=== PATIENT | female | born 1975 | race Hispanic/Latino ===

== ENCOUNTER 2017-10-22 09:16 | Emergency (ER) | payer MEDICARE, OTHER ==
[2017-10-22 09:21] VITALS: BMI 21.3
[2017-10-22] MEDS ORDERED: Sodium Chloride 0.9% 1,000 ML IV STA (09:54)
[2017-10-22 10:22] LABS: BASO # 0.1 K/uL (0.0-0.2); BASO % 1.3 % (0.0-2.0); EOS # 0.1 K/uL (0.0-0.7); EOS % 1.8 % (0.0-4.0); HEMOGLOBIN 13.9 g/dL (12.0-16.0); LYMPH # 1.7 K/uL (1.0-4.3); LYMPH % 39.6 % (20.0-40.0); MEAN CELL VOLUME 85.3 fl (81.0-99.0); MEAN CORPUSCULAR HEMOGLOBIN 29.5 pg (27.0-31.0); MEAN CORPUSCULAR HGB CONC 34.6 g/dL (33.0-37.0); MEAN PLATELET VOLUME 8.8 fl (7.2-11.7); MONO # 0.4 K/uL (0.0-0.8); NEUT # 2.1 K/uL (1.8-7.0); NEUT % 48.3 % (50.0-75.0); NRBC % 0.2 % (0.0-0.0); RBC 4.72 Mil/uL (3.80-5.20); RED CELL DISTRIBUTION WIDTH 14.1 % (11.5-14.5); WHITE BLOOD COUNT 4.3 K/uL (4.8-10.8)
[2017-10-22 10:44] LABS: ALB/GLOB RATIO 1.3 (1.0-2.1); ALBUMIN 4.9 g/dL (3.5-5.0); ALT/SGPT 34 U/L (9-52); AST/SGOT 27 U/L (14-36); BLOOD UREA NITROGEN 19 mg/dl (7-17); CALCIUM 9.8 mg/dL (8.4-10.2); GFR AFRICAN-AMERICAN > 60; GFR NON-AFRICAN AMERICAN > 60; LIPASE 52 U/L (23-300)
--- NOTE | 2017-10-22 10:47 | ED PDOC ---
HPI: Abdomen Time Seen by Provider: 10/22/17 09:33 Chief Complaint (Nursing): Abdominal Pain Chief Complaint (Provider): Abdominal Pain History Per: Patient History/Exam Limitations: no limitations Onset/Duration Of Symptoms: Days, Worse Since Current Symptoms Are (Timing): Constant Quality Of Discomfort: "Pain" Associated Symptoms: Vomiting. denies: Fever, Diarrhea, Chest Pain Additional Complaint(s): 42 year old female with a history of UTI presents to the ED complaining of lower abdominal pain radiating to the back onset for months. She reports the pain is worse today and associated with vomiting. She visited GI specialist, Dr. Craft several weeks ago and had abdominal xray done and was advised to increase fiber in her diet. She states due to her history of urinary infection, she was hospitalized for 6 days last year at [facility]. 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 Patient denies diarrhea , constipation, fever, chest pain or cough. PMD: Zana Matamoros Past Medical History Reviewed: Historical Data, Nursing Documentation, Vital Signs Vital Signs: Last Vital Signs Temp 98.3 F 10/22/17 15:16 Pulse 91 H 10/22/17 15:16 Resp 14 10/22/17 15:16 BP 131/86 10/22/17 15:16 Pulse Ox 100 10/22/17 15:16 - Medical History Other PMH: UTI, precancerous lesions on the vagina, questionable palpitation - Surgical History Other surgeries: total abdominal hysterectomy, laser surgery for precancerous lesions on the vagina - Family History Family History: States: Unknown Family Hx - Home Medications Home Medications: Ambulatory Orders Medication Instructions Recorded Ciprofloxacin [Cipro] 500 mg PO BID #14 tab 10/22/17 Ibuprofen [Motrin Tab] 600 mg PO Q6 PRN #15 tab 10/22/17 - Allergies Allergies/Adverse Reactions: Allergies Allergy/AdvReac Type Severity Reaction Status Date / Time codeine Allergy Mild RASH Verified 10/22/17 10:26 Review of Systems ROS Statement: Except As Marked, All Systems Reviewed And Found Negative Constitutional: Negative for: Fever Cardiovascular: Negative for: Chest Pain Respiratory: Negative for: Cough Gastrointestinal: Positive for: Vomiting, Abdominal Pain. Negative for: Diarrhea, Constipation Genitourinary Female: Positive for: Frequency Physical Exam - Reviewed Nursing Documentation Reviewed: Yes Vital Signs Reviewed: Yes - Physical Exam Appears: Positive for: Non-toxic, No Acute Distress Head Exam: Positive for: ATRAUMATIC, NORMAL INSPECTION, NORMOCEPHALIC Skin: Positive for: Normal Color, Warm, Dry Eye Exam: Positive for: EOMI, Normal appearance, PERRL ENT: Positive for: Normal ENT Inspection Neck: Positive for: Normal, Painless ROM, Supple. Negative for: Decreased ROM Cardiovascular/Chest: Positive for: Regular Rate, Rhythm. Negative for: Murmur Respiratory: Positive for: Normal Breath Sounds. Negative for: Decreased Breath Sounds, Accessory Muscle Use, Respiratory Distress Gastrointestinal/Abdominal: Positive for: Soft, Tenderness (lower bilateral ). Negative for: Guarding, Rebound Back: Positive for: L CVA Tenderness, R CVA Tenderness Neurologic/Psych: Positive for: Alert, Oriented (x3). Negative for: Motor/ Sensory Deficits - Laboratory Results Result Diagrams: 10/22/17 10:00 10/22/17 10:00 - ECG O2 Sat by Pulse Oximetry: 98 (RA) Pulse Ox Interpretation: Normal Medical Decision Making Medical Decision Making: Time: 953 Differential Diagnosis includes but is not limited to: blood work and imagining to r/o nephritis and other infections vs colitis Initial Plan: --Abd & Pelvis IV Contrast CT --CMP --Lipase --ED Urine --ED Urine dipstick --CBC w/ Differential --Normal Saline 1000 mls/hr --Toradol 15mg IVP --Zofran Inj IV --Reevaluation Time: 1330 PROCEDURE: CT abdomen pelvis dated 10/22/2017. HISTORY: Back and lower abdominal/pelvic pain. History of UTIs. COMPARISON: None. TECHNIQUE: Contiguous helical/ transaxial sections of the abdomen pelvis performed following injection of approximately 95 cc Omnipaque 300 contrast material. Additional 2D sagittal and coronal reformats generated. Radiation dose: Total exam DLP = 330.02 mGy-cm. This CT exam was performed using one or more of the following dose reduction techniques: Automated exposure control, adjustment of the mA and/or kV according to patient size, and/or use of iterative reconstruction technique. . FINDINGS: LOWER THORAX: Heart size normal. No significant pericardial effusion. The there is tiny hiatal hernia. Lung conklin clear without focal consolidation or effusion. LIVER: Liver exhibits relatively normal size measuring approximately 17.3 cm in CC dimension. Mild diffuse fatty hepatic infiltration. No obvious hepatic mass collection or calcification. No significant ductal dilatation. GALLBLADDER AND BILE DUCTS: Gallbladder physiologically distended. No evidence of intraluminal gallbladder calculi. PANCREAS: Pancreas appears slightly atrophic. No pancreatic masses collections or calcifications seen. SPLEEN: Spleen is borderline enlarged measuring chronic 12 cm in AP dimension. ADRENALS: Slightly prominent nodular appearing left adrenal gland. Right adrenal gland unremarkable. KIDNEYS AND URETERS: Kidneys demonstrate relatively symmetric size. No evidence of nephrolithiasis or hydronephrosis. VASCULATURE: Unremarkable. No aortic aneurysm. BOWEL: Evaluation of the bowel is limited due to the lack of oral contrast material. The stomach is incompletely distended. Slightly prominent fluid-filled loops of small bowel seen predominately located within the pelvis with less distended proximal small bowel. Rule out mild enteritis. No evidence of acute mechanical small bowel obstruction. Stool and air seen throughout the large bowel. No evidence of definitive mural wall thickening APPENDIX: What could represent a partially visualized appendix best seen midline on axial image number [id number]. No apparent periappendiceal inflammatory changes. PERITONEUM: Unremarkable. No free fluid. No free air. Small fat containing umbilical hernia. LYMPH NODES: Unremarkable. No enlarged lymph nodes. BLADDER: The urinary bladder is physiologically distended. No evidence of intraluminal urinary bladder calculi. The REPRODUCTIVE: Apparent hysterectomy. BONES: Mild multilevel degenerative spondylosis. OTHER FINDINGS: None. IMPRESSION: There are multiple minimally prominent fluid-filled loops of small bowel nonspecific. Rule out mild enteritis. No definitive radiographic evidence of acute appendicitis. . Mild fatty hepatic infiltration. Borderline splenomegaly. Apparent hysterectomy. No evidence of nephrolithiasis or hydronephrosis. Given dose rocephin in ED, followup urine cultures for Abx tailoring. Improved on re-eval in ED, denied symptoms, felt hungry and tolerated full lunch. Scribe Attestation: Documented by Anup Tinoco, acting as a scribe for Ousmane Robbins III, DO Provider Scribe Attestation: All medical record entries made by the Scribe were at my direction and personally dictated by me. I have reviewed the chart and agree that the record accurately reflects my personal performance of the history, physical exam, medical decision making, and the department course for this patient. I have also personally directed, reviewed, and agree with the discharge instructions and disposition. Disposition - Clinical Impression Clinical Impression: UTI (urinary tract infection) - Patient ED Disposition Is Patient to be Admitted: No Counseled Patient/Family Regarding: Studies Performed, Diagnosis, Need For Followup, Rx Given - Disposition Referrals: Zana Matamoros MD [Family Provider] - Disposition Time: 14:15 Condition: STABLE Additional Instructions: Drink plenty of fluids. Followup urine culture for possible change in antibiotics in 2 days. Return to ER for any worse symptoms, fever, weakness or any concern. Prescriptions: Ciprofloxacin [Cipro] 500 mg PO BID #14 tab Ibuprofen [Motrin Tab] 600 mg PO Q6 PRN #15 tab PRN Reason: Pain, Moderate (4-7) Instructions: Urinary Tract Infections in Adults Forms: [facility] (E[place]ian)
[2017-10-22] MEDS ORDERED: Potassium Chloride 20 mEq ER Tab PO ONE ×3 (11:43→11:56)
[2017-10-22] MEDS ORDERED: Sodium Chloride 0.9% 50 ML IV ONE (12:07)
[2017-10-22] MEDS ORDERED: Iohexol 300 100 ML IJ ONE (12:07)
--- NOTE | 2017-10-22 13:46 | CT ---
PROCEDURE: CT abdomen pelvis dated 10/22/2017. HISTORY: Back and lower abdominal/pelvic pain. History of UTIs. COMPARISON: None. TECHNIQUE: Contiguous helical/ transaxial sections of the abdomen pelvis performed following injection of approximately 95 cc Omnipaque 300 contrast material. Additional 2D sagittal and coronal reformats generated. Radiation dose: Total exam DLP = 330.02 mGy-cm. This CT exam was performed using one or more of the following dose reduction techniques: Automated exposure control, adjustment of the mA and/or kV according to patient size, and/or use of iterative reconstruction technique. . FINDINGS: LOWER THORAX: Heart size normal. No significant pericardial effusion. The there is tiny hiatal hernia. Lung conklin clear without focal consolidation or effusion. LIVER: Liver exhibits relatively normal size measuring approximately 17.3 cm in CC dimension. Mild diffuse fatty hepatic infiltration. No obvious hepatic mass collection or calcification. No significant ductal dilatation. GALLBLADDER AND BILE DUCTS: Gallbladder physiologically distended. No evidence of intraluminal gallbladder calculi. PANCREAS: Pancreas appears slightly atrophic. No pancreatic masses collections or calcifications seen. SPLEEN: Spleen is borderline enlarged measuring chronic 12 cm in AP dimension. ADRENALS: Slightly prominent nodular appearing left adrenal gland. Right adrenal gland unremarkable. KIDNEYS AND URETERS: Kidneys demonstrate relatively symmetric size. No evidence of nephrolithiasis or hydronephrosis. VASCULATURE: Unremarkable. No aortic aneurysm. BOWEL: Evaluation of the bowel is limited due to the lack of oral contrast material. The stomach is incompletely distended. Slightly prominent fluid-filled loops of small bowel seen predominately located within the pelvis with less distended proximal small bowel. Rule out mild enteritis. No evidence of acute mechanical small bowel obstruction. Stool and air seen throughout the large bowel. No evidence of definitive mural wall thickening APPENDIX: What could represent a partially visualized appendix best seen midline on axial image number [id number]. No apparent periappendiceal inflammatory changes. PERITONEUM: Unremarkable. No free fluid. No free air. Small fat containing umbilical hernia. LYMPH NODES: Unremarkable. No enlarged lymph nodes. BLADDER: The urinary bladder is physiologically distended. No evidence of intraluminal urinary bladder calculi. The REPRODUCTIVE: Apparent hysterectomy. BONES: Mild multilevel degenerative spondylosis. OTHER FINDINGS: None. IMPRESSION: There are multiple minimally prominent fluid-filled loops of small bowel nonspecific. Rule out mild enteritis. No definitive radiographic evidence of acute appendicitis. . Mild fatty hepatic infiltration. Borderline splenomegaly. Apparent hysterectomy. No evidence of nephrolithiasis or hydronephrosis.
[2017-10-22 13:59] LABS: SQUAMOUS EPITHIAL 6 /hpf (0-5); URINE BACTERIA RARE (<OCC); URINE BILIRUBIN NEGATIVE (NEGATIVE); URINE BLOOD NEGATIVE (NEGATIVE); URINE CLARITY CLOUDY (Clear); URINE COLOR YELLOW (YELLOW); URINE GLUCOSE (UA) NEG (Normal); URINE LEUKOCYTE ESTERASE LARGE Leu/uL (Negative); URINE PROTEIN 30 mg/dL (NEGATIVE); URINE UROBILINOGEN 0.2-1.0 mg/dL (0.2-1.0)
[2017-10-22] MEDS ORDERED: cefTRIAXone (Rocephin) 1 gm Inj ONE (14:22)
[2017-10-22 15:17] VITALS: BP 131/86; PULSE 91; RESP 14; TEMP 98.3
[2017-10-22 16:29] VITALS: O2SAT 98
== END 2017-10-22 15:45 | disposition home or self-care (01) ==
LOC: H.ER 09:16
DX: N39.0 Urinary tract infection, site not specified (principal); Z90.710 Acquired absence of both cervix and uterus
CPT/HCPCS: 74177; 80053; 81003; 81025; 83690; 85025; 87086; 96361; 96374; 96375; 99284; J0696; J1885; J2405; J7030; Q9967

== ENCOUNTER 2017-11-11 07:20 | Day surgery (SDC) | payer MEDICARE, OTHER ==
[2017-11-11] MEDS ORDERED: Lactated Ringer's 500 ML IV ONE ×2 (07:42→09:03)
[2017-11-11 08:01] VITALS: TEMP 96.8
[2017-11-11] MEDS ORDERED: Propofol 10 mg/ml Inj (20 ML) ONE (08:10)
[2017-11-11] MEDS ORDERED: Esmolol 100 mg/10ml Inj IV ONE (08:10)
[2017-11-11] MEDS ORDERED: Midazolam 2 MG/2 ML VIAL ONE (08:10)
[2017-11-11] MEDS ORDERED: Etomidate 20 mg/10ml Inj IV ONE (08:16)
[2017-11-11] MEDS ORDERED: ePHEDrine 50 mg/ml Inj ONE (08:56)
[2017-11-11 09:24] VITALS: O2SAT 100
[2017-11-11 09:25] VITALS: BP 101/68; PULSE 70; RESP 17
== END 2017-11-11 10:00 | disposition home or self-care (01) ==
LOC: H.ENDO 07:20
PROVIDERS: ATTEND Internal Medicine Gastroenterology
DX: R10.84 Generalized abdominal pain (principal); F32.9 Major depressive disorder, single episode, unspecified; F41.9 Anxiety disorder, unspecified; E78.5 Hyperlipidemia, unspecified; K64.8 Other hemorrhoids; K30 Functional dyspepsia; K29.50 Unspecified chronic gastritis without bleeding
CPT/HCPCS: 43239; 45380; 88305; J2001; J2250; J2704; J7120